=== PATIENT | male | born 1950 | race African-American/Black ===

== ENCOUNTER → 2018-06-14 | Outpatient (CLI) | payer OTHER ==
[~2018-06-14] MED LIST: ASPIRIN325 PO; CALCIUM500 MG PO; CIPROFLOXACIN500 M1 PO; ESTROGEN; NORVASC5 MG PO; PROSCAR 5MG TABL5 MG PO; VITAMIN D2000 UNIT PO
== END ==
LOC: HYPER 06-08 08:33
DX: L59.8 Other specified disorders of the skin and subcutaneous tissue related to radiation (principal); N30.41 Irradiation cystitis with hematuria; E78.5 Hyperlipidemia, unspecified; C61 Malignant neoplasm of prostate; I71.4 Abdominal aortic aneurysm, without rupture; I10 Essential (primary) hypertension; I25.10 Atherosclerotic heart disease of native coronary artery without angina pectoris; J44.9 Chronic obstructive pulmonary disease, unspecified; K80.80 Other cholelithiasis without obstruction; M19.90 Unspecified osteoarthritis, unspecified site; F17.290 Nicotine dependence, other tobacco product, uncomplicated; Z85.89 Personal history of malignant neoplasm of other organs and systems; Y84.2 Radiological procedure and radiotherapy as the cause of abnormal reaction of the patient, or of later complication, without mention of misadventure at the time of the procedure

== ENCOUNTER → 2018-06-16 | Outpatient (CLI) | payer OTHER | LOC: RAD 11:38 | DX: J43.9 Emphysema, unspecified (principal) ==

== ENCOUNTER → 2018-06-20 | Outpatient (CLI) | payer OTHER | LOC: HYPER 09:30 | DX: L59.8 Other specified disorders of the skin and subcutaneous tissue related to radiation (principal); C61 Malignant neoplasm of prostate; E78.5 Hyperlipidemia, unspecified; I71.4 Abdominal aortic aneurysm, without rupture; I25.10 Atherosclerotic heart disease of native coronary artery without angina pectoris; I10 Essential (primary) hypertension; J44.9 Chronic obstructive pulmonary disease, unspecified; M19.90 Unspecified osteoarthritis, unspecified site; F17.290 Nicotine dependence, other tobacco product, uncomplicated; F12.90 Cannabis use, unspecified, uncomplicated; Y84.2 Radiological procedure and radiotherapy as the cause of abnormal reaction of the patient, or of later complication, without mention of misadventure at the time of the procedure ==

== ENCOUNTER → 2018-06-21 | Outpatient (CLI) | payer OTHER | LOC: HYPER 06:42 | DX: L59.8 Other specified disorders of the skin and subcutaneous tissue related to radiation (principal); C61 Malignant neoplasm of prostate; E78.5 Hyperlipidemia, unspecified; I71.4 Abdominal aortic aneurysm, without rupture; I25.10 Atherosclerotic heart disease of native coronary artery without angina pectoris; I10 Essential (primary) hypertension; J44.9 Chronic obstructive pulmonary disease, unspecified; M19.90 Unspecified osteoarthritis, unspecified site; F17.290 Nicotine dependence, other tobacco product, uncomplicated; Y84.2 Radiological procedure and radiotherapy as the cause of abnormal reaction of the patient, or of later complication, without mention of misadventure at the time of the procedure ==

== ENCOUNTER → 2018-06-22 | Outpatient (CLI) | payer OTHER | LOC: HYPER 06:32 | DX: L59.8 Other specified disorders of the skin and subcutaneous tissue related to radiation (principal); I71.4 Abdominal aortic aneurysm, without rupture; C61 Malignant neoplasm of prostate; E78.5 Hyperlipidemia, unspecified; I25.10 Atherosclerotic heart disease of native coronary artery without angina pectoris; I10 Essential (primary) hypertension; J44.9 Chronic obstructive pulmonary disease, unspecified; M19.90 Unspecified osteoarthritis, unspecified site; F17.290 Nicotine dependence, other tobacco product, uncomplicated; F12.90 Cannabis use, unspecified, uncomplicated; Y84.2 Radiological procedure and radiotherapy as the cause of abnormal reaction of the patient, or of later complication, without mention of misadventure at the time of the procedure ==

== ENCOUNTER → 2018-06-23 | Outpatient (CLI) | payer OTHER | LOC: HYPER 07:00 | DX: L59.8 Other specified disorders of the skin and subcutaneous tissue related to radiation (principal); C61 Malignant neoplasm of prostate; E78.5 Hyperlipidemia, unspecified; I71.4 Abdominal aortic aneurysm, without rupture; I25.10 Atherosclerotic heart disease of native coronary artery without angina pectoris; I10 Essential (primary) hypertension; J44.9 Chronic obstructive pulmonary disease, unspecified; M19.90 Unspecified osteoarthritis, unspecified site; F17.290 Nicotine dependence, other tobacco product, uncomplicated; Y84.2 Radiological procedure and radiotherapy as the cause of abnormal reaction of the patient, or of later complication, without mention of misadventure at the time of the procedure ==

== ENCOUNTER → 2018-06-24 | Outpatient (CLI) | payer OTHER | LOC: HYPER 06-23 09:40 | DX: L59.8 Other specified disorders of the skin and subcutaneous tissue related to radiation (principal); C61 Malignant neoplasm of prostate; E78.5 Hyperlipidemia, unspecified; I71.4 Abdominal aortic aneurysm, without rupture; I10 Essential (primary) hypertension; I25.10 Atherosclerotic heart disease of native coronary artery without angina pectoris; J44.9 Chronic obstructive pulmonary disease, unspecified; M87.88 Other osteonecrosis, other site; M19.90 Unspecified osteoarthritis, unspecified site; F17.200 Nicotine dependence, unspecified, uncomplicated; Z85.828 Personal history of other malignant neoplasm of skin; Y84.2 Radiological procedure and radiotherapy as the cause of abnormal reaction of the patient, or of later complication, without mention of misadventure at the time of the procedure ==

== ENCOUNTER → 2018-06-28 | Outpatient (CLI) | payer OTHER | LOC: HYPER 06:48 | DX: L59.8 Other specified disorders of the skin and subcutaneous tissue related to radiation (principal); C61 Malignant neoplasm of prostate; E78.5 Hyperlipidemia, unspecified; I71.4 Abdominal aortic aneurysm, without rupture; I10 Essential (primary) hypertension; I25.10 Atherosclerotic heart disease of native coronary artery without angina pectoris; J44.9 Chronic obstructive pulmonary disease, unspecified; K80.80 Other cholelithiasis without obstruction; M19.90 Unspecified osteoarthritis, unspecified site; F17.290 Nicotine dependence, other tobacco product, uncomplicated; Y84.2 Radiological procedure and radiotherapy as the cause of abnormal reaction of the patient, or of later complication, without mention of misadventure at the time of the procedure ==

== ENCOUNTER → 2018-06-29 | Outpatient (CLI) | payer OTHER | LOC: HYPER 06:42 | DX: L59.8 Other specified disorders of the skin and subcutaneous tissue related to radiation (principal); I71.4 Abdominal aortic aneurysm, without rupture; C61 Malignant neoplasm of prostate; E78.5 Hyperlipidemia, unspecified; I10 Essential (primary) hypertension; I25.10 Atherosclerotic heart disease of native coronary artery without angina pectoris; J44.9 Chronic obstructive pulmonary disease, unspecified; K80.80 Other cholelithiasis without obstruction; M19.90 Unspecified osteoarthritis, unspecified site; F17.290 Nicotine dependence, other tobacco product, uncomplicated; F12.90 Cannabis use, unspecified, uncomplicated; Y84.2 Radiological procedure and radiotherapy as the cause of abnormal reaction of the patient, or of later complication, without mention of misadventure at the time of the procedure ==

== ENCOUNTER → 2018-06-30 | Outpatient (CLI) | payer OTHER | LOC: HYPER 06:52 | DX: L59.8 Other specified disorders of the skin and subcutaneous tissue related to radiation (principal); C61 Malignant neoplasm of prostate; E78.5 Hyperlipidemia, unspecified; I71.4 Abdominal aortic aneurysm, without rupture; I25.10 Atherosclerotic heart disease of native coronary artery without angina pectoris; I10 Essential (primary) hypertension; J44.9 Chronic obstructive pulmonary disease, unspecified; M19.90 Unspecified osteoarthritis, unspecified site; F17.290 Nicotine dependence, other tobacco product, uncomplicated; Y84.2 Radiological procedure and radiotherapy as the cause of abnormal reaction of the patient, or of later complication, without mention of misadventure at the time of the procedure ==

== ENCOUNTER → 2018-07-01 | Outpatient (CLI) | payer OTHER | LOC: HYPER 08:55 | DX: L59.8 Other specified disorders of the skin and subcutaneous tissue related to radiation (principal); C61 Malignant neoplasm of prostate; E78.5 Hyperlipidemia, unspecified; I25.10 Atherosclerotic heart disease of native coronary artery without angina pectoris; I71.4 Abdominal aortic aneurysm, without rupture; I10 Essential (primary) hypertension; J44.9 Chronic obstructive pulmonary disease, unspecified; K80.80 Other cholelithiasis without obstruction; M19.90 Unspecified osteoarthritis, unspecified site; F17.290 Nicotine dependence, other tobacco product, uncomplicated; Y84.2 Radiological procedure and radiotherapy as the cause of abnormal reaction of the patient, or of later complication, without mention of misadventure at the time of the procedure ==

== ENCOUNTER → 2018-07-04 | Outpatient (CLI) | payer OTHER | LOC: HYPER 06-27 06:45 | DX: L59.8 Other specified disorders of the skin and subcutaneous tissue related to radiation (principal); C61 Malignant neoplasm of prostate; E78.5 Hyperlipidemia, unspecified; I71.4 Abdominal aortic aneurysm, without rupture; I10 Essential (primary) hypertension; I25.10 Atherosclerotic heart disease of native coronary artery without angina pectoris; J44.9 Chronic obstructive pulmonary disease, unspecified; K80.80 Other cholelithiasis without obstruction; M19.90 Unspecified osteoarthritis, unspecified site; F17.290 Nicotine dependence, other tobacco product, uncomplicated; Y84.2 Radiological procedure and radiotherapy as the cause of abnormal reaction of the patient, or of later complication, without mention of misadventure at the time of the procedure ==

== ENCOUNTER → 2018-07-05 | Outpatient (CLI) | payer OTHER | LOC: HYPER 07:19 | DX: L59.8 Other specified disorders of the skin and subcutaneous tissue related to radiation (principal); C61 Malignant neoplasm of prostate; E78.5 Hyperlipidemia, unspecified; I71.4 Abdominal aortic aneurysm, without rupture; I10 Essential (primary) hypertension; J44.9 Chronic obstructive pulmonary disease, unspecified; I25.10 Atherosclerotic heart disease of native coronary artery without angina pectoris; K80.80 Other cholelithiasis without obstruction; M19.90 Unspecified osteoarthritis, unspecified site; F17.290 Nicotine dependence, other tobacco product, uncomplicated; F12.90 Cannabis use, unspecified, uncomplicated; Y84.2 Radiological procedure and radiotherapy as the cause of abnormal reaction of the patient, or of later complication, without mention of misadventure at the time of the procedure ==

== ENCOUNTER → 2018-07-06 | Outpatient (CLI) | payer OTHER | LOC: HYPER 06:48 | DX: L59.8 Other specified disorders of the skin and subcutaneous tissue related to radiation (principal); C61 Malignant neoplasm of prostate; I71.4 Abdominal aortic aneurysm, without rupture; I25.10 Atherosclerotic heart disease of native coronary artery without angina pectoris; I10 Essential (primary) hypertension; J44.9 Chronic obstructive pulmonary disease, unspecified; E78.5 Hyperlipidemia, unspecified; M19.90 Unspecified osteoarthritis, unspecified site; F17.290 Nicotine dependence, other tobacco product, uncomplicated; F12.90 Cannabis use, unspecified, uncomplicated; Y84.2 Radiological procedure and radiotherapy as the cause of abnormal reaction of the patient, or of later complication, without mention of misadventure at the time of the procedure ==

== ENCOUNTER → 2018-07-07 | Outpatient (CLI) | payer OTHER | LOC: HYPER 06:59 | DX: L59.8 Other specified disorders of the skin and subcutaneous tissue related to radiation (principal); C61 Malignant neoplasm of prostate; E78.5 Hyperlipidemia, unspecified; I71.4 Abdominal aortic aneurysm, without rupture; I25.10 Atherosclerotic heart disease of native coronary artery without angina pectoris; I10 Essential (primary) hypertension; J44.9 Chronic obstructive pulmonary disease, unspecified; M19.90 Unspecified osteoarthritis, unspecified site; F17.290 Nicotine dependence, other tobacco product, uncomplicated; Y84.2 Radiological procedure and radiotherapy as the cause of abnormal reaction of the patient, or of later complication, without mention of misadventure at the time of the procedure ==

== ENCOUNTER → 2018-07-08 | Outpatient (CLI) | payer OTHER | LOC: HYPER 08:32 | DX: L59.8 Other specified disorders of the skin and subcutaneous tissue related to radiation (principal); C61 Malignant neoplasm of prostate; E78.5 Hyperlipidemia, unspecified; I71.4 Abdominal aortic aneurysm, without rupture; I10 Essential (primary) hypertension; I25.10 Atherosclerotic heart disease of native coronary artery without angina pectoris; J44.9 Chronic obstructive pulmonary disease, unspecified; M19.90 Unspecified osteoarthritis, unspecified site; F17.290 Nicotine dependence, other tobacco product, uncomplicated; Y84.2 Radiological procedure and radiotherapy as the cause of abnormal reaction of the patient, or of later complication, without mention of misadventure at the time of the procedure ==

== ENCOUNTER → 2018-07-11 | Outpatient (CLI) | payer OTHER | LOC: HYPER 07:05 | DX: L59.8 Other specified disorders of the skin and subcutaneous tissue related to radiation (principal); C61 Malignant neoplasm of prostate; E78.5 Hyperlipidemia, unspecified; I71.4 Abdominal aortic aneurysm, without rupture; I25.10 Atherosclerotic heart disease of native coronary artery without angina pectoris; I10 Essential (primary) hypertension; J44.9 Chronic obstructive pulmonary disease, unspecified; M19.90 Unspecified osteoarthritis, unspecified site; F17.290 Nicotine dependence, other tobacco product, uncomplicated; Y84.2 Radiological procedure and radiotherapy as the cause of abnormal reaction of the patient, or of later complication, without mention of misadventure at the time of the procedure ==

== ENCOUNTER → 2018-07-12 | Outpatient (CLI) | payer OTHER | LOC: HYPER 07:33 | DX: L59.8 Other specified disorders of the skin and subcutaneous tissue related to radiation (principal); C61 Malignant neoplasm of prostate; E78.5 Hyperlipidemia, unspecified; I71.4 Abdominal aortic aneurysm, without rupture; I25.10 Atherosclerotic heart disease of native coronary artery without angina pectoris; I10 Essential (primary) hypertension; J44.9 Chronic obstructive pulmonary disease, unspecified; M19.90 Unspecified osteoarthritis, unspecified site; M87.38 Other secondary osteonecrosis, other site; F17.290 Nicotine dependence, other tobacco product, uncomplicated; F12.90 Cannabis use, unspecified, uncomplicated; Y84.2 Radiological procedure and radiotherapy as the cause of abnormal reaction of the patient, or of later complication, without mention of misadventure at the time of the procedure ==

== ENCOUNTER → 2018-07-13 | Outpatient (CLI) | payer OTHER | LOC: HYPER 06:47 | DX: L59.8 Other specified disorders of the skin and subcutaneous tissue related to radiation (principal); C61 Malignant neoplasm of prostate; E78.5 Hyperlipidemia, unspecified; I71.4 Abdominal aortic aneurysm, without rupture; I25.10 Atherosclerotic heart disease of native coronary artery without angina pectoris; I10 Essential (primary) hypertension; J44.9 Chronic obstructive pulmonary disease, unspecified; M87.38 Other secondary osteonecrosis, other site; M19.90 Unspecified osteoarthritis, unspecified site; F17.290 Nicotine dependence, other tobacco product, uncomplicated; Y84.2 Radiological procedure and radiotherapy as the cause of abnormal reaction of the patient, or of later complication, without mention of misadventure at the time of the procedure ==

== ENCOUNTER → 2018-07-14 | Outpatient (CLI) | payer OTHER | LOC: HYPER 07:05 | DX: L59.8 Other specified disorders of the skin and subcutaneous tissue related to radiation (principal); C61 Malignant neoplasm of prostate; E78.5 Hyperlipidemia, unspecified; I71.4 Abdominal aortic aneurysm, without rupture; I25.10 Atherosclerotic heart disease of native coronary artery without angina pectoris; I10 Essential (primary) hypertension; J44.9 Chronic obstructive pulmonary disease, unspecified; M19.90 Unspecified osteoarthritis, unspecified site; M87.38 Other secondary osteonecrosis, other site; F17.290 Nicotine dependence, other tobacco product, uncomplicated; Y84.2 Radiological procedure and radiotherapy as the cause of abnormal reaction of the patient, or of later complication, without mention of misadventure at the time of the procedure ==

== ENCOUNTER → 2018-07-15 | Outpatient (CLI) | payer OTHER | LOC: HYPER 07:57 | DX: L59.8 Other specified disorders of the skin and subcutaneous tissue related to radiation (principal); C61 Malignant neoplasm of prostate; E78.5 Hyperlipidemia, unspecified; I71.4 Abdominal aortic aneurysm, without rupture; I10 Essential (primary) hypertension; I25.10 Atherosclerotic heart disease of native coronary artery without angina pectoris; J44.9 Chronic obstructive pulmonary disease, unspecified; K80.80 Other cholelithiasis without obstruction; M19.90 Unspecified osteoarthritis, unspecified site; M87.38 Other secondary osteonecrosis, other site; F17.290 Nicotine dependence, other tobacco product, uncomplicated; Y84.2 Radiological procedure and radiotherapy as the cause of abnormal reaction of the patient, or of later complication, without mention of misadventure at the time of the procedure ==

== ENCOUNTER → 2018-07-18 | Outpatient (CLI) | payer OTHER | LOC: HYPER 07:10 | DX: L59.8 Other specified disorders of the skin and subcutaneous tissue related to radiation (principal); C61 Malignant neoplasm of prostate; E78.5 Hyperlipidemia, unspecified; I71.4 Abdominal aortic aneurysm, without rupture; I25.10 Atherosclerotic heart disease of native coronary artery without angina pectoris; I10 Essential (primary) hypertension; J44.9 Chronic obstructive pulmonary disease, unspecified; M19.90 Unspecified osteoarthritis, unspecified site; M87.88 Other osteonecrosis, other site; F17.290 Nicotine dependence, other tobacco product, uncomplicated; Y84.2 Radiological procedure and radiotherapy as the cause of abnormal reaction of the patient, or of later complication, without mention of misadventure at the time of the procedure ==

== ENCOUNTER → 2018-07-26 | Outpatient (CLI) | payer OTHER | LOC: HYPER 06:37 | DX: L59.8 Other specified disorders of the skin and subcutaneous tissue related to radiation (principal); C61 Malignant neoplasm of prostate; E78.5 Hyperlipidemia, unspecified; I25.10 Atherosclerotic heart disease of native coronary artery without angina pectoris; I71.4 Abdominal aortic aneurysm, without rupture; I10 Essential (primary) hypertension; J44.9 Chronic obstructive pulmonary disease, unspecified; M19.90 Unspecified osteoarthritis, unspecified site; M87.88 Other osteonecrosis, other site; F17.290 Nicotine dependence, other tobacco product, uncomplicated; Y84.2 Radiological procedure and radiotherapy as the cause of abnormal reaction of the patient, or of later complication, without mention of misadventure at the time of the procedure ==

== ENCOUNTER → 2018-07-27 | Outpatient (CLI) | payer OTHER | LOC: HYPER 06:50 | DX: L59.8 Other specified disorders of the skin and subcutaneous tissue related to radiation (principal); I71.4 Abdominal aortic aneurysm, without rupture; I10 Essential (primary) hypertension; C61 Malignant neoplasm of prostate; I25.10 Atherosclerotic heart disease of native coronary artery without angina pectoris; E78.5 Hyperlipidemia, unspecified; N42.30 Unspecified dysplasia of prostate; M19.90 Unspecified osteoarthritis, unspecified site; J44.9 Chronic obstructive pulmonary disease, unspecified; F17.290 Nicotine dependence, other tobacco product, uncomplicated; Z85.828 Personal history of other malignant neoplasm of skin; Y84.2 Radiological procedure and radiotherapy as the cause of abnormal reaction of the patient, or of later complication, without mention of misadventure at the time of the procedure ==

== ENCOUNTER → 2018-07-28 | Outpatient (CLI) | payer OTHER | LOC: HYPER 07-25 14:24 | DX: L59.8 Other specified disorders of the skin and subcutaneous tissue related to radiation (principal); C61 Malignant neoplasm of prostate; E78.5 Hyperlipidemia, unspecified; I25.10 Atherosclerotic heart disease of native coronary artery without angina pectoris; I10 Essential (primary) hypertension; I71.4 Abdominal aortic aneurysm, without rupture; J44.9 Chronic obstructive pulmonary disease, unspecified; M19.90 Unspecified osteoarthritis, unspecified site; M87.88 Other osteonecrosis, other site; F17.290 Nicotine dependence, other tobacco product, uncomplicated; Y84.2 Radiological procedure and radiotherapy as the cause of abnormal reaction of the patient, or of later complication, without mention of misadventure at the time of the procedure ==

== ENCOUNTER → 2018-07-29 | Outpatient (CLI) | payer OTHER | LOC: HYPER 07-19 06:59 | DX: L59.8 Other specified disorders of the skin and subcutaneous tissue related to radiation (principal); I71.4 Abdominal aortic aneurysm, without rupture; C61 Malignant neoplasm of prostate; E78.5 Hyperlipidemia, unspecified; I25.10 Atherosclerotic heart disease of native coronary artery without angina pectoris; I10 Essential (primary) hypertension; J44.9 Chronic obstructive pulmonary disease, unspecified; M19.90 Unspecified osteoarthritis, unspecified site; M87.88 Other osteonecrosis, other site; F17.290 Nicotine dependence, other tobacco product, uncomplicated; Y84.2 Radiological procedure and radiotherapy as the cause of abnormal reaction of the patient, or of later complication, without mention of misadventure at the time of the procedure ==

== ENCOUNTER → 2018-08-01 | Outpatient (CLI) | payer OTHER | LOC: HYPER 07:01 | DX: L59.8 Other specified disorders of the skin and subcutaneous tissue related to radiation (principal); C61 Malignant neoplasm of prostate; E78.5 Hyperlipidemia, unspecified; I71.4 Abdominal aortic aneurysm, without rupture; I25.10 Atherosclerotic heart disease of native coronary artery without angina pectoris; I10 Essential (primary) hypertension; J44.9 Chronic obstructive pulmonary disease, unspecified; M87.88 Other osteonecrosis, other site; M19.90 Unspecified osteoarthritis, unspecified site; F17.290 Nicotine dependence, other tobacco product, uncomplicated; Y84.2 Radiological procedure and radiotherapy as the cause of abnormal reaction of the patient, or of later complication, without mention of misadventure at the time of the procedure ==

== ENCOUNTER → 2018-08-02 | Outpatient (CLI) | payer OTHER | LOC: HYPER 06:48 | DX: L59.8 Other specified disorders of the skin and subcutaneous tissue related to radiation (principal); C61 Malignant neoplasm of prostate; E78.5 Hyperlipidemia, unspecified; I71.4 Abdominal aortic aneurysm, without rupture; I25.10 Atherosclerotic heart disease of native coronary artery without angina pectoris; I10 Essential (primary) hypertension; J44.9 Chronic obstructive pulmonary disease, unspecified; M87.88 Other osteonecrosis, other site; M19.90 Unspecified osteoarthritis, unspecified site; F17.290 Nicotine dependence, other tobacco product, uncomplicated; Y84.2 Radiological procedure and radiotherapy as the cause of abnormal reaction of the patient, or of later complication, without mention of misadventure at the time of the procedure ==

== ENCOUNTER → 2018-08-03 | Outpatient (CLI) | payer OTHER | LOC: HYPER 07:05 | DX: L59.8 Other specified disorders of the skin and subcutaneous tissue related to radiation (principal); E78.5 Hyperlipidemia, unspecified; C61 Malignant neoplasm of prostate; I71.4 Abdominal aortic aneurysm, without rupture; I25.10 Atherosclerotic heart disease of native coronary artery without angina pectoris; I10 Essential (primary) hypertension; J44.9 Chronic obstructive pulmonary disease, unspecified; M19.90 Unspecified osteoarthritis, unspecified site; M87.88 Other osteonecrosis, other site; F17.290 Nicotine dependence, other tobacco product, uncomplicated; Y84.2 Radiological procedure and radiotherapy as the cause of abnormal reaction of the patient, or of later complication, without mention of misadventure at the time of the procedure ==

== ENCOUNTER → 2018-08-04 | Outpatient (CLI) | payer OTHER | LOC: HYPER 07:07 | DX: L59.8 Other specified disorders of the skin and subcutaneous tissue related to radiation (principal); C61 Malignant neoplasm of prostate; E78.5 Hyperlipidemia, unspecified; I71.4 Abdominal aortic aneurysm, without rupture; I25.10 Atherosclerotic heart disease of native coronary artery without angina pectoris; I10 Essential (primary) hypertension; J44.9 Chronic obstructive pulmonary disease, unspecified; M87.88 Other osteonecrosis, other site; M19.90 Unspecified osteoarthritis, unspecified site; F17.290 Nicotine dependence, other tobacco product, uncomplicated; Y84.2 Radiological procedure and radiotherapy as the cause of abnormal reaction of the patient, or of later complication, without mention of misadventure at the time of the procedure ==

== ENCOUNTER → 2018-08-05 | Outpatient (CLI) | payer OTHER | LOC: HYPER 08:08 | DX: L59.8 Other specified disorders of the skin and subcutaneous tissue related to radiation (principal); C61 Malignant neoplasm of prostate; E78.5 Hyperlipidemia, unspecified; I71.4 Abdominal aortic aneurysm, without rupture; I25.10 Atherosclerotic heart disease of native coronary artery without angina pectoris; I10 Essential (primary) hypertension; J44.9 Chronic obstructive pulmonary disease, unspecified; M19.90 Unspecified osteoarthritis, unspecified site; M87.88 Other osteonecrosis, other site; F17.290 Nicotine dependence, other tobacco product, uncomplicated; Y84.2 Radiological procedure and radiotherapy as the cause of abnormal reaction of the patient, or of later complication, without mention of misadventure at the time of the procedure ==

== ENCOUNTER → 2018-08-08 | Outpatient (CLI) | payer OTHER | LOC: HYPER 07:05 | DX: L59.8 Other specified disorders of the skin and subcutaneous tissue related to radiation (principal); C61 Malignant neoplasm of prostate; I71.4 Abdominal aortic aneurysm, without rupture; E78.5 Hyperlipidemia, unspecified; I25.10 Atherosclerotic heart disease of native coronary artery without angina pectoris; I10 Essential (primary) hypertension; J44.9 Chronic obstructive pulmonary disease, unspecified; M87.88 Other osteonecrosis, other site; M19.90 Unspecified osteoarthritis, unspecified site; F17.290 Nicotine dependence, other tobacco product, uncomplicated ==

== ENCOUNTER → 2018-08-09 | Outpatient (CLI) | payer OTHER | LOC: HYPER 06:51 | DX: L59.8 Other specified disorders of the skin and subcutaneous tissue related to radiation (principal); C61 Malignant neoplasm of prostate; E78.5 Hyperlipidemia, unspecified; I71.4 Abdominal aortic aneurysm, without rupture; I10 Essential (primary) hypertension; I25.10 Atherosclerotic heart disease of native coronary artery without angina pectoris; J44.9 Chronic obstructive pulmonary disease, unspecified; K62.7 Radiation proctitis; M19.90 Unspecified osteoarthritis, unspecified site; M87.88 Other osteonecrosis, other site; F17.290 Nicotine dependence, other tobacco product, uncomplicated; Y84.2 Radiological procedure and radiotherapy as the cause of abnormal reaction of the patient, or of later complication, without mention of misadventure at the time of the procedure ==

== ENCOUNTER → 2018-08-10 | Outpatient (CLI) | payer OTHER | LOC: HYPER 06:58 | DX: L59.8 Other specified disorders of the skin and subcutaneous tissue related to radiation (principal); C61 Malignant neoplasm of prostate; E78.5 Hyperlipidemia, unspecified; I10 Essential (primary) hypertension; I71.4 Abdominal aortic aneurysm, without rupture; I25.10 Atherosclerotic heart disease of native coronary artery without angina pectoris; J44.9 Chronic obstructive pulmonary disease, unspecified; K62.7 Radiation proctitis; M87.38 Other secondary osteonecrosis, other site; M19.90 Unspecified osteoarthritis, unspecified site; F17.290 Nicotine dependence, other tobacco product, uncomplicated ==

== ENCOUNTER → 2018-08-11 | Outpatient (CLI) | payer OTHER | LOC: HYPER 07:09 | DX: L59.8 Other specified disorders of the skin and subcutaneous tissue related to radiation (principal); C61 Malignant neoplasm of prostate; E78.5 Hyperlipidemia, unspecified; I71.4 Abdominal aortic aneurysm, without rupture; I10 Essential (primary) hypertension; I25.10 Atherosclerotic heart disease of native coronary artery without angina pectoris; J44.9 Chronic obstructive pulmonary disease, unspecified; M87.38 Other secondary osteonecrosis, other site; M19.90 Unspecified osteoarthritis, unspecified site; F17.290 Nicotine dependence, other tobacco product, uncomplicated; F12.90 Cannabis use, unspecified, uncomplicated; Y84.2 Radiological procedure and radiotherapy as the cause of abnormal reaction of the patient, or of later complication, without mention of misadventure at the time of the procedure ==

== ENCOUNTER → 2018-08-12 | Outpatient (CLI) | payer OTHER | LOC: HYPER 07:39 | DX: L59.8 Other specified disorders of the skin and subcutaneous tissue related to radiation (principal); I71.4 Abdominal aortic aneurysm, without rupture; C61 Malignant neoplasm of prostate; I25.10 Atherosclerotic heart disease of native coronary artery without angina pectoris; E78.5 Hyperlipidemia, unspecified; I10 Essential (primary) hypertension; N42.30 Unspecified dysplasia of prostate; K62.7 Radiation proctitis; M19.90 Unspecified osteoarthritis, unspecified site; J44.9 Chronic obstructive pulmonary disease, unspecified; F17.200 Nicotine dependence, unspecified, uncomplicated; F12.90 Cannabis use, unspecified, uncomplicated; Y84.2 Radiological procedure and radiotherapy as the cause of abnormal reaction of the patient, or of later complication, without mention of misadventure at the time of the procedure ==

== ENCOUNTER → 2018-08-15 | Outpatient (CLI) | payer OTHER | LOC: HYPER 06:53 | DX: L59.8 Other specified disorders of the skin and subcutaneous tissue related to radiation (principal); C61 Malignant neoplasm of prostate; E78.5 Hyperlipidemia, unspecified; I71.4 Abdominal aortic aneurysm, without rupture; I25.10 Atherosclerotic heart disease of native coronary artery without angina pectoris; I10 Essential (primary) hypertension; J44.9 Chronic obstructive pulmonary disease, unspecified; K62.7 Radiation proctitis; M19.90 Unspecified osteoarthritis, unspecified site; M87.38 Other secondary osteonecrosis, other site; F17.290 Nicotine dependence, other tobacco product, uncomplicated; Y84.2 Radiological procedure and radiotherapy as the cause of abnormal reaction of the patient, or of later complication, without mention of misadventure at the time of the procedure ==

== ENCOUNTER → 2018-08-16 | Outpatient (CLI) | payer OTHER | LOC: HYPER 07:03 | DX: L59.8 Other specified disorders of the skin and subcutaneous tissue related to radiation (principal); C61 Malignant neoplasm of prostate; E78.5 Hyperlipidemia, unspecified; I71.4 Abdominal aortic aneurysm, without rupture; I25.10 Atherosclerotic heart disease of native coronary artery without angina pectoris; I10 Essential (primary) hypertension; J44.9 Chronic obstructive pulmonary disease, unspecified; K62.7 Radiation proctitis; M19.90 Unspecified osteoarthritis, unspecified site; M87.38 Other secondary osteonecrosis, other site; F17.290 Nicotine dependence, other tobacco product, uncomplicated; Y84.2 Radiological procedure and radiotherapy as the cause of abnormal reaction of the patient, or of later complication, without mention of misadventure at the time of the procedure ==

== ENCOUNTER → 2018-08-17 | Outpatient (CLI) | payer OTHER | LOC: HYPER 06:51 | DX: L59.8 Other specified disorders of the skin and subcutaneous tissue related to radiation (principal); I10 Essential (primary) hypertension; E78.5 Hyperlipidemia, unspecified; I71.4 Abdominal aortic aneurysm, without rupture; N42.30 Unspecified dysplasia of prostate; K62.7 Radiation proctitis; I25.10 Atherosclerotic heart disease of native coronary artery without angina pectoris; C61 Malignant neoplasm of prostate; M19.90 Unspecified osteoarthritis, unspecified site; J44.9 Chronic obstructive pulmonary disease, unspecified; F17.290 Nicotine dependence, other tobacco product, uncomplicated; Y84.2 Radiological procedure and radiotherapy as the cause of abnormal reaction of the patient, or of later complication, without mention of misadventure at the time of the procedure ==

== ENCOUNTER → 2018-08-18 | Outpatient (CLI) | payer OTHER | LOC: HYPER 07:00 | DX: L59.8 Other specified disorders of the skin and subcutaneous tissue related to radiation (principal); C61 Malignant neoplasm of prostate; E78.5 Hyperlipidemia, unspecified; I25.10 Atherosclerotic heart disease of native coronary artery without angina pectoris; I10 Essential (primary) hypertension; I71.4 Abdominal aortic aneurysm, without rupture; J44.9 Chronic obstructive pulmonary disease, unspecified; K62.7 Radiation proctitis; M19.90 Unspecified osteoarthritis, unspecified site; M87.38 Other secondary osteonecrosis, other site; F17.290 Nicotine dependence, other tobacco product, uncomplicated; Z85.89 Personal history of malignant neoplasm of other organs and systems ==

== ENCOUNTER → 2018-08-19 | Outpatient (CLI) | payer OTHER | LOC: HYPER 07:46 | DX: L59.8 Other specified disorders of the skin and subcutaneous tissue related to radiation (principal); C61 Malignant neoplasm of prostate; E78.5 Hyperlipidemia, unspecified; I71.4 Abdominal aortic aneurysm, without rupture; I25.10 Atherosclerotic heart disease of native coronary artery without angina pectoris; I10 Essential (primary) hypertension; J44.9 Chronic obstructive pulmonary disease, unspecified; M87.38 Other secondary osteonecrosis, other site; M19.90 Unspecified osteoarthritis, unspecified site; F17.290 Nicotine dependence, other tobacco product, uncomplicated; Z85.89 Personal history of malignant neoplasm of other organs and systems; Y84.2 Radiological procedure and radiotherapy as the cause of abnormal reaction of the patient, or of later complication, without mention of misadventure at the time of the procedure ==

== ENCOUNTER → 2018-08-24 | Outpatient (CLI) | payer OTHER | LOC: HYPER 06:58 | DX: L59.8 Other specified disorders of the skin and subcutaneous tissue related to radiation (principal); C61 Malignant neoplasm of prostate; E78.5 Hyperlipidemia, unspecified; I25.10 Atherosclerotic heart disease of native coronary artery without angina pectoris; I10 Essential (primary) hypertension; I71.4 Abdominal aortic aneurysm, without rupture; J44.9 Chronic obstructive pulmonary disease, unspecified; K62.7 Radiation proctitis; M19.90 Unspecified osteoarthritis, unspecified site; M87.38 Other secondary osteonecrosis, other site; F17.290 Nicotine dependence, other tobacco product, uncomplicated; Y84.2 Radiological procedure and radiotherapy as the cause of abnormal reaction of the patient, or of later complication, without mention of misadventure at the time of the procedure ==

== ENCOUNTER → 2018-12-01 | Outpatient (CLI) | payer OTHER | LOC: HYPER 07:06 | DX: L59.8 Other specified disorders of the skin and subcutaneous tissue related to radiation (principal); C61 Malignant neoplasm of prostate; I10 Essential (primary) hypertension; N42.30 Unspecified dysplasia of prostate; I71.4 Abdominal aortic aneurysm, without rupture; I25.10 Atherosclerotic heart disease of native coronary artery without angina pectoris; E78.5 Hyperlipidemia, unspecified; K80.80 Other cholelithiasis without obstruction; K62.7 Radiation proctitis; M19.90 Unspecified osteoarthritis, unspecified site; J44.9 Chronic obstructive pulmonary disease, unspecified; F17.210 Nicotine dependence, cigarettes, uncomplicated; Z85.828 Personal history of other malignant neoplasm of skin; Y84.2 Radiological procedure and radiotherapy as the cause of abnormal reaction of the patient, or of later complication, without mention of misadventure at the time of the procedure ==

== ENCOUNTER → 2018-12-05 | Outpatient (CLI) | payer OTHER | LOC: HYPER 06:55 | DX: L59.8 Other specified disorders of the skin and subcutaneous tissue related to radiation (principal); I71.4 Abdominal aortic aneurysm, without rupture; C61 Malignant neoplasm of prostate; N30.41 Irradiation cystitis with hematuria; N42.30 Unspecified dysplasia of prostate; E78.5 Hyperlipidemia, unspecified; I25.10 Atherosclerotic heart disease of native coronary artery without angina pectoris; I10 Essential (primary) hypertension; J44.9 Chronic obstructive pulmonary disease, unspecified; M87.38 Other secondary osteonecrosis, other site; M19.90 Unspecified osteoarthritis, unspecified site; F17.290 Nicotine dependence, other tobacco product, uncomplicated; Y84.2 Radiological procedure and radiotherapy as the cause of abnormal reaction of the patient, or of later complication, without mention of misadventure at the time of the procedure ==

== ENCOUNTER → 2018-12-07 | Outpatient (CLI) | payer OTHER | LOC: HYPER 06:45 | DX: L59.8 Other specified disorders of the skin and subcutaneous tissue related to radiation (principal); C61 Malignant neoplasm of prostate; E78.5 Hyperlipidemia, unspecified; I71.4 Abdominal aortic aneurysm, without rupture; I25.10 Atherosclerotic heart disease of native coronary artery without angina pectoris; I10 Essential (primary) hypertension; J44.9 Chronic obstructive pulmonary disease, unspecified; M19.90 Unspecified osteoarthritis, unspecified site; M87.38 Other secondary osteonecrosis, other site; N42.30 Unspecified dysplasia of prostate; N30.41 Irradiation cystitis with hematuria; F17.290 Nicotine dependence, other tobacco product, uncomplicated; F12.90 Cannabis use, unspecified, uncomplicated; Y84.2 Radiological procedure and radiotherapy as the cause of abnormal reaction of the patient, or of later complication, without mention of misadventure at the time of the procedure ==

== ENCOUNTER → 2018-12-08 | Outpatient (CLI) | payer OTHER | LOC: HYPER 06:35 | DX: L59.8 Other specified disorders of the skin and subcutaneous tissue related to radiation (principal); I71.4 Abdominal aortic aneurysm, without rupture; N42.30 Unspecified dysplasia of prostate; E78.5 Hyperlipidemia, unspecified; I10 Essential (primary) hypertension; C61 Malignant neoplasm of prostate; N30.41 Irradiation cystitis with hematuria; I25.10 Atherosclerotic heart disease of native coronary artery without angina pectoris; M19.90 Unspecified osteoarthritis, unspecified site; J44.9 Chronic obstructive pulmonary disease, unspecified; F17.200 Nicotine dependence, unspecified, uncomplicated; Z85.828 Personal history of other malignant neoplasm of skin; Y84.2 Radiological procedure and radiotherapy as the cause of abnormal reaction of the patient, or of later complication, without mention of misadventure at the time of the procedure ==

== ENCOUNTER → 2018-12-09 | Outpatient (CLI) | payer OTHER | LOC: HYPER 07:42 | DX: L59.8 Other specified disorders of the skin and subcutaneous tissue related to radiation (principal); I10 Essential (primary) hypertension; E78.5 Hyperlipidemia, unspecified; I71.4 Abdominal aortic aneurysm, without rupture; N42.30 Unspecified dysplasia of prostate; C61 Malignant neoplasm of prostate; N30.41 Irradiation cystitis with hematuria; I25.10 Atherosclerotic heart disease of native coronary artery without angina pectoris; M19.90 Unspecified osteoarthritis, unspecified site; J44.9 Chronic obstructive pulmonary disease, unspecified; F17.210 Nicotine dependence, cigarettes, uncomplicated; Z85.828 Personal history of other malignant neoplasm of skin; Y84.2 Radiological procedure and radiotherapy as the cause of abnormal reaction of the patient, or of later complication, without mention of misadventure at the time of the procedure ==

== ENCOUNTER → 2018-12-12 | Outpatient (CLI) | payer OTHER | LOC: HYPER 06:47 | DX: L59.8 Other specified disorders of the skin and subcutaneous tissue related to radiation (principal); I71.4 Abdominal aortic aneurysm, without rupture; N42.30 Unspecified dysplasia of prostate; I10 Essential (primary) hypertension; C61 Malignant neoplasm of prostate; N30.41 Irradiation cystitis with hematuria; I25.10 Atherosclerotic heart disease of native coronary artery without angina pectoris; M19.90 Unspecified osteoarthritis, unspecified site; E78.5 Hyperlipidemia, unspecified; J44.9 Chronic obstructive pulmonary disease, unspecified; F17.290 Nicotine dependence, other tobacco product, uncomplicated; Z85.828 Personal history of other malignant neoplasm of skin; Y84.2 Radiological procedure and radiotherapy as the cause of abnormal reaction of the patient, or of later complication, without mention of misadventure at the time of the procedure ==

== ENCOUNTER → 2018-12-13 | Outpatient (CLI) | payer OTHER | LOC: HYPER 06:55 | DX: L59.8 Other specified disorders of the skin and subcutaneous tissue related to radiation (principal); I71.4 Abdominal aortic aneurysm, without rupture; N42.30 Unspecified dysplasia of prostate; C61 Malignant neoplasm of prostate; I10 Essential (primary) hypertension; I25.10 Atherosclerotic heart disease of native coronary artery without angina pectoris; E78.5 Hyperlipidemia, unspecified; K80.80 Other cholelithiasis without obstruction; K62.7 Radiation proctitis; N30.40 Irradiation cystitis without hematuria; M19.90 Unspecified osteoarthritis, unspecified site; J44.9 Chronic obstructive pulmonary disease, unspecified; F17.290 Nicotine dependence, other tobacco product, uncomplicated; Z85.828 Personal history of other malignant neoplasm of skin; Y84.2 Radiological procedure and radiotherapy as the cause of abnormal reaction of the patient, or of later complication, without mention of misadventure at the time of the procedure ==

== ENCOUNTER → 2018-12-14 | Outpatient (CLI) | payer OTHER | LOC: HYPER 06:57 | DX: L59.8 Other specified disorders of the skin and subcutaneous tissue related to radiation (principal); C61 Malignant neoplasm of prostate; E78.5 Hyperlipidemia, unspecified; I71.4 Abdominal aortic aneurysm, without rupture; I25.10 Atherosclerotic heart disease of native coronary artery without angina pectoris; I10 Essential (primary) hypertension; N30.41 Irradiation cystitis with hematuria; J44.9 Chronic obstructive pulmonary disease, unspecified; M19.90 Unspecified osteoarthritis, unspecified site; M87.38 Other secondary osteonecrosis, other site; F17.290 Nicotine dependence, other tobacco product, uncomplicated; Y84.2 Radiological procedure and radiotherapy as the cause of abnormal reaction of the patient, or of later complication, without mention of misadventure at the time of the procedure ==

== ENCOUNTER → 2018-12-15 | Outpatient (CLI) | payer OTHER | LOC: HYPER 06:46 | DX: L59.8 Other specified disorders of the skin and subcutaneous tissue related to radiation (principal); N30.41 Irradiation cystitis with hematuria; C61 Malignant neoplasm of prostate; E78.5 Hyperlipidemia, unspecified; I71.4 Abdominal aortic aneurysm, without rupture; I25.10 Atherosclerotic heart disease of native coronary artery without angina pectoris; I10 Essential (primary) hypertension; J44.9 Chronic obstructive pulmonary disease, unspecified; M19.90 Unspecified osteoarthritis, unspecified site; M87.38 Other secondary osteonecrosis, other site; F17.290 Nicotine dependence, other tobacco product, uncomplicated; Y84.2 Radiological procedure and radiotherapy as the cause of abnormal reaction of the patient, or of later complication, without mention of misadventure at the time of the procedure ==

== ENCOUNTER → 2018-12-16 | Outpatient (CLI) | payer OTHER | LOC: HYPER 06:45 | DX: L59.8 Other specified disorders of the skin and subcutaneous tissue related to radiation (principal); N30.41 Irradiation cystitis with hematuria; C61 Malignant neoplasm of prostate; E78.5 Hyperlipidemia, unspecified; I25.10 Atherosclerotic heart disease of native coronary artery without angina pectoris; I71.4 Abdominal aortic aneurysm, without rupture; I10 Essential (primary) hypertension; J44.9 Chronic obstructive pulmonary disease, unspecified; M19.90 Unspecified osteoarthritis, unspecified site; M87.38 Other secondary osteonecrosis, other site; F17.290 Nicotine dependence, other tobacco product, uncomplicated; Y84.2 Radiological procedure and radiotherapy as the cause of abnormal reaction of the patient, or of later complication, without mention of misadventure at the time of the procedure ==

== ENCOUNTER → 2018-12-19 | Outpatient (CLI) | payer OTHER | LOC: HYPER 06:46 | DX: L59.8 Other specified disorders of the skin and subcutaneous tissue related to radiation (principal); N30.41 Irradiation cystitis with hematuria; C61 Malignant neoplasm of prostate; E78.5 Hyperlipidemia, unspecified; I71.4 Abdominal aortic aneurysm, without rupture; I25.10 Atherosclerotic heart disease of native coronary artery without angina pectoris; I10 Essential (primary) hypertension; J44.9 Chronic obstructive pulmonary disease, unspecified; M87.38 Other secondary osteonecrosis, other site; M19.90 Unspecified osteoarthritis, unspecified site; F17.290 Nicotine dependence, other tobacco product, uncomplicated; Y84.2 Radiological procedure and radiotherapy as the cause of abnormal reaction of the patient, or of later complication, without mention of misadventure at the time of the procedure ==

== ENCOUNTER → 2018-12-20 | Outpatient (CLI) | payer OTHER | LOC: HYPER 06:54 | DX: L59.8 Other specified disorders of the skin and subcutaneous tissue related to radiation (principal); N30.41 Irradiation cystitis with hematuria; C61 Malignant neoplasm of prostate; E78.5 Hyperlipidemia, unspecified; I71.4 Abdominal aortic aneurysm, without rupture; I25.10 Atherosclerotic heart disease of native coronary artery without angina pectoris; I10 Essential (primary) hypertension; J44.9 Chronic obstructive pulmonary disease, unspecified; M19.90 Unspecified osteoarthritis, unspecified site; M87.38 Other secondary osteonecrosis, other site; F17.290 Nicotine dependence, other tobacco product, uncomplicated; F12.90 Cannabis use, unspecified, uncomplicated; Y84.2 Radiological procedure and radiotherapy as the cause of abnormal reaction of the patient, or of later complication, without mention of misadventure at the time of the procedure ==

== ENCOUNTER → 2018-12-22 | Outpatient (CLI) | payer OTHER | LOC: HYPER 07:03 | DX: L59.8 Other specified disorders of the skin and subcutaneous tissue related to radiation (principal); I71.4 Abdominal aortic aneurysm, without rupture; N42.30 Unspecified dysplasia of prostate; C61 Malignant neoplasm of prostate; N30.41 Irradiation cystitis with hematuria; I10 Essential (primary) hypertension; I25.10 Atherosclerotic heart disease of native coronary artery without angina pectoris; M19.90 Unspecified osteoarthritis, unspecified site; E78.5 Hyperlipidemia, unspecified; J44.9 Chronic obstructive pulmonary disease, unspecified; F17.200 Nicotine dependence, unspecified, uncomplicated; Z85.828 Personal history of other malignant neoplasm of skin; Y84.2 Radiological procedure and radiotherapy as the cause of abnormal reaction of the patient, or of later complication, without mention of misadventure at the time of the procedure ==

== ENCOUNTER → 2018-12-23 | Outpatient (CLI) | payer OTHER | LOC: HYPER 08:39 | DX: L59.8 Other specified disorders of the skin and subcutaneous tissue related to radiation (principal); I71.4 Abdominal aortic aneurysm, without rupture; C61 Malignant neoplasm of prostate; I10 Essential (primary) hypertension; N42.30 Unspecified dysplasia of prostate; N30.41 Irradiation cystitis with hematuria; I25.10 Atherosclerotic heart disease of native coronary artery without angina pectoris; M19.90 Unspecified osteoarthritis, unspecified site; E78.5 Hyperlipidemia, unspecified; J44.9 Chronic obstructive pulmonary disease, unspecified; F17.210 Nicotine dependence, cigarettes, uncomplicated; Y84.2 Radiological procedure and radiotherapy as the cause of abnormal reaction of the patient, or of later complication, without mention of misadventure at the time of the procedure ==

== ENCOUNTER → 2018-12-26 | Outpatient (CLI) | payer OTHER | LOC: HYPER 06:58 | DX: L59.8 Other specified disorders of the skin and subcutaneous tissue related to radiation (principal); I71.4 Abdominal aortic aneurysm, without rupture; N42.30 Unspecified dysplasia of prostate; C61 Malignant neoplasm of prostate; N30.41 Irradiation cystitis with hematuria; M19.90 Unspecified osteoarthritis, unspecified site; E78.5 Hyperlipidemia, unspecified; I10 Essential (primary) hypertension; J44.9 Chronic obstructive pulmonary disease, unspecified; F17.200 Nicotine dependence, unspecified, uncomplicated; Y84.2 Radiological procedure and radiotherapy as the cause of abnormal reaction of the patient, or of later complication, without mention of misadventure at the time of the procedure ==

== ENCOUNTER → 2018-12-27 | Outpatient (CLI) | payer OTHER | LOC: HYPER 12-21 06:34 | DX: L59.8 Other specified disorders of the skin and subcutaneous tissue related to radiation (principal); C61 Malignant neoplasm of prostate; I71.4 Abdominal aortic aneurysm, without rupture; I10 Essential (primary) hypertension; E78.5 Hyperlipidemia, unspecified; J44.9 Chronic obstructive pulmonary disease, unspecified; N42.30 Unspecified dysplasia of prostate; K80.80 Other cholelithiasis without obstruction; K62.7 Radiation proctitis; N30.01 Acute cystitis with hematuria; I25.10 Atherosclerotic heart disease of native coronary artery without angina pectoris; M19.90 Unspecified osteoarthritis, unspecified site; M87.38 Other secondary osteonecrosis, other site; Y84.2 Radiological procedure and radiotherapy as the cause of abnormal reaction of the patient, or of later complication, without mention of misadventure at the time of the procedure ==

== ENCOUNTER → 2018-12-28 | Outpatient (CLI) | payer OTHER | LOC: HYPER 06:32 | DX: L59.8 Other specified disorders of the skin and subcutaneous tissue related to radiation (principal); N30.41 Irradiation cystitis with hematuria; C61 Malignant neoplasm of prostate; E78.5 Hyperlipidemia, unspecified; I71.4 Abdominal aortic aneurysm, without rupture; I25.10 Atherosclerotic heart disease of native coronary artery without angina pectoris; I10 Essential (primary) hypertension; J44.9 Chronic obstructive pulmonary disease, unspecified; M19.90 Unspecified osteoarthritis, unspecified site; M87.38 Other secondary osteonecrosis, other site; F17.290 Nicotine dependence, other tobacco product, uncomplicated; F12.90 Cannabis use, unspecified, uncomplicated; Y84.2 Radiological procedure and radiotherapy as the cause of abnormal reaction of the patient, or of later complication, without mention of misadventure at the time of the procedure ==

== ENCOUNTER → 2018-12-29 | Outpatient (CLI) | payer OTHER | LOC: HYPER 06:57 | DX: L59.8 Other specified disorders of the skin and subcutaneous tissue related to radiation (principal); N30.41 Irradiation cystitis with hematuria; C61 Malignant neoplasm of prostate; E78.5 Hyperlipidemia, unspecified; I71.4 Abdominal aortic aneurysm, without rupture; I25.10 Atherosclerotic heart disease of native coronary artery without angina pectoris; I10 Essential (primary) hypertension; J44.9 Chronic obstructive pulmonary disease, unspecified; M19.90 Unspecified osteoarthritis, unspecified site; M87.38 Other secondary osteonecrosis, other site; F17.290 Nicotine dependence, other tobacco product, uncomplicated; Y84.2 Radiological procedure and radiotherapy as the cause of abnormal reaction of the patient, or of later complication, without mention of misadventure at the time of the procedure ==

== ENCOUNTER → 2018-12-30 | Outpatient (CLI) | payer OTHER | LOC: HYPER 07:52 | DX: L59.8 Other specified disorders of the skin and subcutaneous tissue related to radiation (principal); N30.41 Irradiation cystitis with hematuria; C61 Malignant neoplasm of prostate; E78.5 Hyperlipidemia, unspecified; I71.4 Abdominal aortic aneurysm, without rupture; I25.10 Atherosclerotic heart disease of native coronary artery without angina pectoris; I10 Essential (primary) hypertension; J44.9 Chronic obstructive pulmonary disease, unspecified; M19.90 Unspecified osteoarthritis, unspecified site; M87.38 Other secondary osteonecrosis, other site; F17.290 Nicotine dependence, other tobacco product, uncomplicated; F12.90 Cannabis use, unspecified, uncomplicated; Y84.2 Radiological procedure and radiotherapy as the cause of abnormal reaction of the patient, or of later complication, without mention of misadventure at the time of the procedure ==

== ENCOUNTER → 2019-01-02 | Outpatient (CLI) | payer OTHER | LOC: HYPER 06:39 | DX: L59.8 Other specified disorders of the skin and subcutaneous tissue related to radiation (principal); N30.41 Irradiation cystitis with hematuria; C61 Malignant neoplasm of prostate; E78.5 Hyperlipidemia, unspecified; I71.4 Abdominal aortic aneurysm, without rupture; I25.10 Atherosclerotic heart disease of native coronary artery without angina pectoris; I10 Essential (primary) hypertension; J44.9 Chronic obstructive pulmonary disease, unspecified; M87.38 Other secondary osteonecrosis, other site; M19.90 Unspecified osteoarthritis, unspecified site; F17.290 Nicotine dependence, other tobacco product, uncomplicated; Z85.46 Personal history of malignant neoplasm of prostate; Y84.2 Radiological procedure and radiotherapy as the cause of abnormal reaction of the patient, or of later complication, without mention of misadventure at the time of the procedure ==

== ENCOUNTER → 2019-01-03 | Outpatient (CLI) | payer OTHER | LOC: HYPER 06:37 | DX: L59.8 Other specified disorders of the skin and subcutaneous tissue related to radiation (principal); N30.41 Irradiation cystitis with hematuria; C61 Malignant neoplasm of prostate; E78.5 Hyperlipidemia, unspecified; I71.4 Abdominal aortic aneurysm, without rupture; I25.10 Atherosclerotic heart disease of native coronary artery without angina pectoris; I10 Essential (primary) hypertension; J44.9 Chronic obstructive pulmonary disease, unspecified; M19.90 Unspecified osteoarthritis, unspecified site; M87.38 Other secondary osteonecrosis, other site; F12.20 Cannabis dependence, uncomplicated; F17.290 Nicotine dependence, other tobacco product, uncomplicated; Y84.2 Radiological procedure and radiotherapy as the cause of abnormal reaction of the patient, or of later complication, without mention of misadventure at the time of the procedure ==

== ENCOUNTER → 2019-01-04 | Outpatient (CLI) | payer OTHER | LOC: HYPER 06:50 | DX: L59.8 Other specified disorders of the skin and subcutaneous tissue related to radiation (principal); N30.41 Irradiation cystitis with hematuria; E78.5 Hyperlipidemia, unspecified; C61 Malignant neoplasm of prostate; I71.4 Abdominal aortic aneurysm, without rupture; I25.10 Atherosclerotic heart disease of native coronary artery without angina pectoris; I10 Essential (primary) hypertension; J44.9 Chronic obstructive pulmonary disease, unspecified; M19.90 Unspecified osteoarthritis, unspecified site; M87.38 Other secondary osteonecrosis, other site; F17.290 Nicotine dependence, other tobacco product, uncomplicated; Y84.2 Radiological procedure and radiotherapy as the cause of abnormal reaction of the patient, or of later complication, without mention of misadventure at the time of the procedure ==

== ENCOUNTER → 2019-01-05 | Outpatient (CLI) | payer OTHER | LOC: HYPER 06:42 | DX: L59.8 Other specified disorders of the skin and subcutaneous tissue related to radiation (principal); I71.4 Abdominal aortic aneurysm, without rupture; C61 Malignant neoplasm of prostate; I25.10 Atherosclerotic heart disease of native coronary artery without angina pectoris; M19.90 Unspecified osteoarthritis, unspecified site; E78.5 Hyperlipidemia, unspecified; I10 Essential (primary) hypertension; E55.9 Vitamin D deficiency, unspecified; N30.41 Irradiation cystitis with hematuria; N42.30 Unspecified dysplasia of prostate; J44.9 Chronic obstructive pulmonary disease, unspecified; F17.200 Nicotine dependence, unspecified, uncomplicated; Z85.828 Personal history of other malignant neoplasm of skin; Y84.2 Radiological procedure and radiotherapy as the cause of abnormal reaction of the patient, or of later complication, without mention of misadventure at the time of the procedure ==

== ENCOUNTER → 2019-01-06 | Outpatient (CLI) | payer OTHER | LOC: HYPER 08:58 | DX: L59.8 Other specified disorders of the skin and subcutaneous tissue related to radiation (principal); I71.4 Abdominal aortic aneurysm, without rupture; N42.30 Unspecified dysplasia of prostate; C61 Malignant neoplasm of prostate; N30.41 Irradiation cystitis with hematuria; I25.10 Atherosclerotic heart disease of native coronary artery without angina pectoris; E78.5 Hyperlipidemia, unspecified; E55.9 Vitamin D deficiency, unspecified; M19.90 Unspecified osteoarthritis, unspecified site; J44.9 Chronic obstructive pulmonary disease, unspecified; F17.210 Nicotine dependence, cigarettes, uncomplicated; Y84.2 Radiological procedure and radiotherapy as the cause of abnormal reaction of the patient, or of later complication, without mention of misadventure at the time of the procedure ==

== ENCOUNTER → 2019-01-09 | Outpatient (CLI) | payer OTHER | LOC: HYPER 06:45 | DX: L59.8 Other specified disorders of the skin and subcutaneous tissue related to radiation (principal); I71.4 Abdominal aortic aneurysm, without rupture; N42.30 Unspecified dysplasia of prostate; C61 Malignant neoplasm of prostate; N30.41 Irradiation cystitis with hematuria; I25.10 Atherosclerotic heart disease of native coronary artery without angina pectoris; M19.90 Unspecified osteoarthritis, unspecified site; E55.9 Vitamin D deficiency, unspecified; J44.9 Chronic obstructive pulmonary disease, unspecified; F17.210 Nicotine dependence, cigarettes, uncomplicated; Y84.2 Radiological procedure and radiotherapy as the cause of abnormal reaction of the patient, or of later complication, without mention of misadventure at the time of the procedure ==

== ENCOUNTER → 2019-01-10 | Outpatient (CLI) | payer OTHER | LOC: HYPER 06:45 | DX: L59.8 Other specified disorders of the skin and subcutaneous tissue related to radiation (principal); I71.4 Abdominal aortic aneurysm, without rupture; N42.30 Unspecified dysplasia of prostate; C61 Malignant neoplasm of prostate; N30.41 Irradiation cystitis with hematuria; I25.10 Atherosclerotic heart disease of native coronary artery without angina pectoris; E78.5 Hyperlipidemia, unspecified; I10 Essential (primary) hypertension; E55.9 Vitamin D deficiency, unspecified; J44.9 Chronic obstructive pulmonary disease, unspecified; F17.210 Nicotine dependence, cigarettes, uncomplicated; F12.90 Cannabis use, unspecified, uncomplicated; Y84.2 Radiological procedure and radiotherapy as the cause of abnormal reaction of the patient, or of later complication, without mention of misadventure at the time of the procedure ==

== ENCOUNTER → 2019-01-11 | Outpatient (CLI) | payer OTHER | LOC: HYPER 06:49 | DX: L59.8 Other specified disorders of the skin and subcutaneous tissue related to radiation (principal); I71.4 Abdominal aortic aneurysm, without rupture; N42.30 Unspecified dysplasia of prostate; I10 Essential (primary) hypertension; C61 Malignant neoplasm of prostate; N30.41 Irradiation cystitis with hematuria; I25.10 Atherosclerotic heart disease of native coronary artery without angina pectoris; M19.90 Unspecified osteoarthritis, unspecified site; E78.5 Hyperlipidemia, unspecified; E55.9 Vitamin D deficiency, unspecified; J44.9 Chronic obstructive pulmonary disease, unspecified; F17.210 Nicotine dependence, cigarettes, uncomplicated; F12.90 Cannabis use, unspecified, uncomplicated; Z85.3 Personal history of malignant neoplasm of breast; Z85.828 Personal history of other malignant neoplasm of skin; Y84.2 Radiological procedure and radiotherapy as the cause of abnormal reaction of the patient, or of later complication, without mention of misadventure at the time of the procedure ==

== ENCOUNTER → 2019-01-12 | Outpatient (CLI) | payer OTHER | LOC: HYPER 06:43 | DX: L59.8 Other specified disorders of the skin and subcutaneous tissue related to radiation (principal); I71.4 Abdominal aortic aneurysm, without rupture; N42.30 Unspecified dysplasia of prostate; C61 Malignant neoplasm of prostate; N30.41 Irradiation cystitis with hematuria; I25.10 Atherosclerotic heart disease of native coronary artery without angina pectoris; E55.9 Vitamin D deficiency, unspecified; E78.5 Hyperlipidemia, unspecified; J44.9 Chronic obstructive pulmonary disease, unspecified; F17.210 Nicotine dependence, cigarettes, uncomplicated; Z85.828 Personal history of other malignant neoplasm of skin; Y84.2 Radiological procedure and radiotherapy as the cause of abnormal reaction of the patient, or of later complication, without mention of misadventure at the time of the procedure ==

== ENCOUNTER → 2019-01-13 | Outpatient (CLI) | payer OTHER | LOC: HYPER 07:46 | DX: L59.8 Other specified disorders of the skin and subcutaneous tissue related to radiation (principal); I71.4 Abdominal aortic aneurysm, without rupture; N42.30 Unspecified dysplasia of prostate; I10 Essential (primary) hypertension; C61 Malignant neoplasm of prostate; N30.41 Irradiation cystitis with hematuria; I25.10 Atherosclerotic heart disease of native coronary artery without angina pectoris; M19.90 Unspecified osteoarthritis, unspecified site; E78.5 Hyperlipidemia, unspecified; E55.9 Vitamin D deficiency, unspecified; J44.9 Chronic obstructive pulmonary disease, unspecified; F17.210 Nicotine dependence, cigarettes, uncomplicated; Y84.2 Radiological procedure and radiotherapy as the cause of abnormal reaction of the patient, or of later complication, without mention of misadventure at the time of the procedure ==

== ENCOUNTER → 2019-01-17 | Outpatient (CLI) | payer OTHER | LOC: HYPER 06:12 | DX: L59.8 Other specified disorders of the skin and subcutaneous tissue related to radiation (principal); C61 Malignant neoplasm of prostate; E78.5 Hyperlipidemia, unspecified; I71.4 Abdominal aortic aneurysm, without rupture; I10 Essential (primary) hypertension; I25.10 Atherosclerotic heart disease of native coronary artery without angina pectoris; J44.9 Chronic obstructive pulmonary disease, unspecified; M19.90 Unspecified osteoarthritis, unspecified site; M87.38 Other secondary osteonecrosis, other site; N30.41 Irradiation cystitis with hematuria; F17.290 Nicotine dependence, other tobacco product, uncomplicated; Y84.2 Radiological procedure and radiotherapy as the cause of abnormal reaction of the patient, or of later complication, without mention of misadventure at the time of the procedure ==

== ENCOUNTER 2021-09-17 12:35 | Inpatient (IN) | payer OTHER ==
[~2021-09-17] VITALS: Ht 175.3 cm; Wt 51.6 kg
[2021-09-17 12:37] VITALS: BP 126/90
[2021-09-17 13:08] LABS: BASOPHILS 0.3 % (0.0-2.0); EOSINOPHILS 0.1 % (0.0-3.0); HEMATOCRIT 44.3 % (42.0-52.0); HEMOGLOBIN 14.1 gm/dL (14.0-18.0); LYMPHOCYTES 4.8 % (24.0-44.0); MCH 26.6 pg (26.0-34.0); MCHC 31.9 g/dL (28.0-37.0); MCV 83.3 fL (80.0-100.0); MONOCYTES 6.6 % (1.0-8.0); PLATELET COUNT 272 thou/uL (150-400); POLYS 88.2 % (36.0-66.0); RBC 5.32 mil/uL (4.50-6.00); RDW 20.3 % (10.5-14.5); WBC 7.9 thou/uL (4.0-11.0)
[2021-09-17 13:18] LABS: CALCIUM 9.6 mg/dL (8.5-10.1); CREATININE 0.8 mg/dL (0.7-1.3)
[2021-09-17 13:19] LABS: POTASSIUM 4.3 mmol/L (3.5-5.1)
[2021-09-17 13:27] LABS: TOTAL BILIRUBIN 1.5 mg/dL (0.2-1.0); TOTAL PROTEIN 7.5 g/dL (6.4-8.2)
[2021-09-17] MEDS ORDERED: OXYBUTYNIN CHLO15 MG PO (13:58)
[2021-09-17] MEDS ORDERED: LORAZEPAM 0.50.5 MG PO (14:02)
[2021-09-17] MEDS ORDERED: ZOLOFT50 M1 PO (14:03)
[2021-09-17] MEDS ORDERED: RAYOS5 MG PO (14:04)
[2021-09-17] MEDS ORDERED: INDAPAMIDE2.5 MG PO (14:04)
[2021-09-17 14:20] LABS: ANISOCYTOSIS 2+
--- NOTE | 2021-09-17 14:46 | NUR ---
PT FAMILY UPDATED IN WAITING ROOM ON PT STATUS. FAMILY REQUESTING TO SPEAK WITH ED PHYSICIAN. EDP NOTIFIED.
--- NOTE | 2021-09-17 15:11 | NUR ---
LAB CALLED REGARDING BLOOD CULTURE DRAW. 4x ATTEMPT FOR SECOND SET OF CULTURES FAILED, LAB AND EDP NOTIFIED. LAB TO COME AND REDRAW CULTURES AND LACTIC.
[2021-09-17 17:20] VITALS: BP 125/85
[2021-09-17 21:00] VITALS: BP 125/88
[2021-09-18 04:24] VITALS: BP 118/81
[2021-09-18 05:00] LABS: CALCIUM 8.4 mg/dL (8.5-10.1); CREATININE 0.5 mg/dL (0.7-1.3); POTASSIUM 3.8 mmol/L (3.5-5.1)
[2021-09-18 05:06] LABS: ALBUMIN 2.4 g/dL (3.4-5.0); MAGNESIUM 1.7 mg/dL (1.8-2.4); TOTAL BILIRUBIN 0.7 mg/dL (0.2-1.0); TOTAL PROTEIN 5.5 g/dL (6.4-8.2)
[2021-09-18 05:08] LABS: ABSOLUTE NEUTROPHILS 5.6 thou/uL (1.4-8.2); BASOPHILS 0.1 % (0.0-2.0); HEMATOCRIT 34.3 % (42.0-52.0); MCH 26.7 pg (26.0-34.0); MCHC 32.5 g/dL (28.0-37.0); MCV 82.1 fL (80.0-100.0); MONOCYTES 2.5 % (1.0-8.0); PLATELET COUNT 225 thou/uL (150-400); POLYS 94.4 % (36.0-66.0); RBC 4.18 mil/uL (4.50-6.00); RDW 19.1 % (10.5-14.5)
[2021-09-18 05:26] LABS: HEMOGLOBIN 11.1 gm/dL (14.0-18.0)
--- NOTE | 2021-09-18 07:26 | NUR ---
ASSUME CARE 1900. PT/VITALS STABLE. DEEIS ANY PAIN. A/O X 4. VERY POOR TOLERANCE TO ACTIVITY. PT GETS VRY SOB/WINDED WITH MILD EXERTION. APPEAR EMACIATED. POOR APPETITIE INDICATED. ASSESSMENT CHARTED. POOR PROGRESS TO POC. ST/SR ON MONITOR. PLAN IS TO CONTINUE TO MONITOR AND MANAGE RESP FUNCTION, ENCOURAGE NUTRITIONAL AND FLUID INTAKE. WILL CONTINUE TO MONITOR AND FOLLOW WITH POC
--- NOTE | 2021-09-18 08:39 | EKG ---
[place] [address] [facility] [place] [address] ELECTROCARDIOGRAM REPORT Name: SKIP KRAUS Room #: 455-P ADM IN M.R.#: [id number] Admission: 09/17/21 Attend Phys: Con Marcial MD Discharge: Date of : 50 Report #: [id number] [facility] ED Test Date: 2021-09-17 Test Time: 14:20:42 Pat Name: SKIP KRAUS Department: Room: [facility] Gender: M Steel Tier: tjones : 1950 Requested By: Capri Young Order Number: [id number] MD: Renny Menjivar Measurements Intervals [place] Rate: 99 P: 79 [place]: 141 QRS: -116 QRSD: 140 T: 51 QT: 390 QTc: 501 Interpretive Statements Sinus rhythm Consider right atrial enlargement RBBB and LAFB No previous ECG available for comparison Electronically Signed On 09-18-2021 8:39:02 AIR CARRIER MAINTENANCE INSPECTOR by Renny Menjivar [email or web address] <ELECTRONICALLY SIGNED> By: Renny Menjivar MD, [facility] 09/18/21 0839 1420 1420 Renny Menjivar MD, FACC /EPI
[2021-09-18 09:58] VITALS: BP 113/84
[2021-09-18 15:58] VITALS: BP 108/68
[2021-09-18 20:10] VITALS: BP 153/86
[2021-09-19] VITALS (7 sets, daily range): BP systolic 101–148; BP diastolic 67–89
--- NOTE | 2021-09-19 04:31 | NUR ---
PT IS A/O X3 WITH FORGETFULNESS. IS UP WITH ASSISTANCE X1/SBA TO THE BSC OR CHAIR. SOA WITH EXERTION. CAN BE IMPULSIVE WITH TAKING OFF OXYGEN AND HEART MONITOR. EASILY REDIRECTED. MEDICATIONS GIVEN PER MAR. FALL PRECAUTIONS IN PLACE, CALL LIGHT IS WITHIN REACH.
--- NOTE | 2021-09-19 10:27 | NUR ---
PT ON TELE HR IN 120'S. DR. ROJAS AWARE, EKG ORDERED STAT.
--- NOTE | 2021-09-19 11:05 | EKG ---
[place] [address] [facility] [place] [address] ELECTROCARDIOGRAM REPORT Name: SKIP KRAUS Room #: 455-P ADM IN M.R.#: [id number] Admission: 09/17/21 Attend Phys: Con Marcial MD Discharge: Date of : 50 Report #: [id number] [facility] Test Date: 2021-09-19 Test Time: 10:39:03 Pat Name: SKIP KRAUS Department: Room: 455 P Gender: M Hand Cloth Folder: CHARLEY : 1950 Requested By: Con Marcial Order Number: [id number] MD: Renny Menjivar Measurements Intervals [place] Rate: 131 P: 87 [place]: 120 QRS: 82 QRSD: 135 T: -78 QT: 350 QTc: 517 Interpretive Statements Sinus tachycardia Right bundle branch block Compared to ECG 09/17/2021 14:20:42 Sinus rhythm no longer present Left anterior fascicular block no longer present Electronically Signed On 09-19-2021 11:05:04 PACKAGE LIFT OPERATOR by Renny Menjivar [email or web address] <ELECTRONICALLY SIGNED> By: Renny Menjivar MD, [facility] 09/19/21 1105 1039 1039 Renny Menjivar MD, FACC /EPI
--- NOTE | 2021-09-19 14:38 | NUR ---
NO STEPS HE USES INSIDE. PT INDICATED HE HAD BEEN INDEPENDENT WITH GAIT AND ADLS IN THE HOME SETTING. PT INDICATED HE HAS A 4WW AND A SCOOTER FOR COMMUNITY USE. PT INDICATED HE HAD NO HH HX. PT INDICATED HE PLANS TO RETURN HOME ONCE MEDICALLY STABLE. CM REQUESTED AND RECEIVED PERMISSION TO SPEAK WITH PT'S DTR CU[place] . SHE CONFIRMED THAT ABOVE. SHE INDICATED THAT SHE, HER DTR AND SPOUSE HAVE WORKED OUT SO THAT SOMEONE IS ALWAYS THERE. DTR INDICATED THAT ASSIST PT WITH MEAL PREP AND LAUNDRY. SHE INDICATED THEY WERE RECEPTIVE TO HH OR O2 IF NEEDED UPON DC. THEY INDICATED NO PREFERANCE FOR PROVIDERS. CM FAXED REFERRAL TO [facility]. DTR IS AWARE AND AGREEABLE. PHYSICIAN INDICATED THAT PT MAY BE MEDICALLY STABLE TO DC OVER WEEKEND. EXERCISE OX TEST WILL NEED TO BE DONE PRIOR TO DC IF PT'S QUALIFIES FOR HOME O2 FAX TESTING RESULTS AND SCRIPT TO [facility] EM[facility]PARTMENT CALL . FAX ORDERS TO [facility] .
--- NOTE | 2021-09-20 05:12 | NUR ---
patient aox3 confused and forgetful. patient is on 3l of oxygen no soa or distress noted this shift.patient requested to sleep on the recliner.patient calm and cooperative with care and meds. patient uses urinal. patient encouraged fluids. fall precaution in place. patient in bed asleep at this time breathing regular and unlaboured.
[2021-09-20 05:43] LABS: ABSOLUTE NEUTROPHILS 3.7 thou/uL (1.4-8.2); BASOPHILS 0.4 % (0.0-2.0); EOSINOPHILS 0.6 % (0.0-3.0); HEMATOCRIT 37.5 % (42.0-52.0); LYMPHOCYTES 10.6 % (24.0-44.0); MCH 26.5 pg (26.0-34.0); MCHC 32.1 g/dL (28.0-37.0); MCV 82.5 fL (80.0-100.0); MONOCYTES 10.4 % (1.0-8.0); PLATELET COUNT 255 thou/uL (150-400); RBC 4.55 mil/uL (4.50-6.00); RDW 19.3 % (10.5-14.5); WBC 4.7 thou/uL (4.0-11.0)
[2021-09-20 05:58] LABS: ALBUMIN 2.7 g/dL (3.4-5.0); CALCIUM 8.5 mg/dL (8.5-10.1); CREATININE 0.6 mg/dL (0.7-1.3); TOTAL BILIRUBIN 0.5 mg/dL (0.2-1.0); TOTAL PROTEIN 6.2 g/dL (6.4-8.2)
[2021-09-20 06:01] LABS: DIRECT BILIRUBIN 0.3 mg/dL (<0.1-0.2); PHOSPHORUS 2.2 mg/dL (2.6-4.7)
[2021-09-20 06:18] LABS: POTASSIUM 2.9 mmol/L (3.5-5.1)
[2021-09-20 07:18] VITALS: BP 116/86
[2021-09-20 15:23] VITALS: BP 108/72
[2021-09-20 20:15] VITALS: BP 116/80
--- NOTE | 2021-09-20 22:37 | HC ---
[facility] [place] [address] CONSULTATION Name: SKIP KRAUS Room #: 455-P ADM IN M.R.#: [id number] Admission: 09/17/21 Attend Phys: Con Marcial MD Discharge: Date of : 50 Report #: [id number] THIS REPORT FOR: cc: Charly Barnett MD, Thomas P. MD Geha,Fran Collazo MD ~ DATE OF SERVICE: 09/19/2021 INFECTIOUS DISEASE CONSULTATION REASON FOR CONSULTATION: I was asked to evaluate concerning COVID-19 pneumonia. HISTORY OF PRESENT ILLNESS: The patient is a 71-year-old with underlying history of prostate cancer, status post treatment several years ago with no evidence of disease and hypertension, who has been COVID vaccinated x3, presents with 3-day history of myalgias, arthralgias, nonproductive cough and progressive shortness of breath. Evaluation noticed pulmonary embolus on CT scan. He is now on 4-6 liters of oxygen per nasal cannula. He has had no chest pain or palpitations. No nausea, vomiting or diarrhea. No previous history of pneumonia, tuberculosis, HIV, hepatitis. He has had pneumonia x1 in the distant past. He has also noticed a fair amount of weight loss over the last several months. He does come in on prednisone 10 mg a day. REVIEW OF SYSTEMS: A 14-point review of system was negative other than what has been described above. ALLERGIES: None known. MEDICATIONS: As noted on his MAR. PAST MEDICAL HISTORY: Prostate cancer, hypertension, depression, BPH, COPD. FAMILY HISTORY: Negative for tuberculosis. SOCIAL HISTORY: Past smoker, no significant alcohol intake. Lives with his extended family. PHYSICAL EXAMINATION: GENERAL: He is afebrile and hemodynamically stable. He was cachectic. SKIN: Without rash. HEENT: No palpable adenopathy. Eyes without scleral icterus. Mouth without mucositis. NECK: Supple. LUNGS: A few scattered crackles posteriorly. HEART: Regular, without murmur, gallop or rub. ABDOMEN: Soft and nontender with no hepatosplenomegaly or masses appreciated. [facility] [address] [facility] [place] [address] CONSULTATION Name: SKIP KRAUS Room #: 455-P ADM IN M.R.#: [id number] Admission: 09/17/21 Attend Phys: Con Marcial MD Discharge: Date of : 50 Report #: [id number] EXTREMITIES: Without clubbing, cyanosis or edema. NEUROLOGIC: Cranial nerves intact. Strength in upper and lower extremities was symmetric. PSYCHIATRIC: Mood without anxiety. SPINE: Nontender. LABORATORY DATA: Reviewed. Microbiology reviewed. Ultrasound of lower extremities, CT scan of the chest reviewed. IMPRESSION: A 71-year-old with underlying chronic obstructive pulmonary disease, past smoker, presents with COVID-19 infection and pulmonary embolus. No ground glass infiltrates seen on CT scan. He was previously vaccinated, past history of prostate cancer and hypertension. RECOMMENDATIONS: Recommend a 3-day course of remdesivir. If able could use enteral therapy with Paxlovid although unclear if there is enough dosing available for patient to get access. Other option would be monoclonal antibody to coronavirus spike protein, Sotrovimab. Last check, there was minimal supply, several days of a waiting list, therefore, would recommend a 3-day course of remdesivir. Continue with corticosteroids as the patient is hypoxic. This may be a combination of COPD exacerbation in addition to the COVID and pulmonary embolus. Treat his pulmonary embolus with anticoagulation. Follow up the patient on COVID isolation unit and reassess over the next 48 hours. <ELECTRONICALLY SIGNED> By: Fran Nunez MD 09/20/21 2237 1754 0115 Fran Nunez MD /nt
--- NOTE | 2021-09-21 03:12 | NUR ---
patient aox3 confused and forgetful. patient impulsive this shift.patient on 4l of oxygen. patient soa with activities. daughter upset because she want the patient to be discharged in the am and thinks otherwise. fall precaution in place. patient in bed asleep at this time breathing regular and unlaboured.
[2021-09-21 04:45] VITALS: BP 144/66
[2021-09-21 05:50] LABS: HEMATOCRIT 36.6 % (42.0-52.0); MCH 27.2 pg (26.0-34.0); MCHC 32.9 g/dL (28.0-37.0); MCV 82.5 fL (80.0-100.0); RBC 4.43 mil/uL (4.50-6.00); RDW 19.1 % (10.5-14.5); WBC 3.7 thou/uL (4.0-11.0)
[2021-09-21 06:16] LABS: ALBUMIN 2.9 g/dL (3.4-5.0); CALCIUM 8.7 mg/dL (8.5-10.1); CREATININE 0.5 mg/dL (0.7-1.3); DIRECT BILIRUBIN 0.3 mg/dL (<0.1-0.2); PHOSPHORUS 2.5 mg/dL (2.5-4.9); TOTAL BILIRUBIN 0.6 mg/dL (0.2-1.0); TOTAL PROTEIN 5.9 g/dL (6.4-8.2)
[2021-09-21 06:25] LABS: POTASSIUM 4.4 mmol/L (3.5-5.1)
[2021-09-21 07:48] VITALS: BP 121/81
[2021-09-21 11:22] VITALS: BP 118/88
[2021-09-21 15:36] VITALS: BP 111/79
[2021-09-21 19:22] VITALS: BP 111/71
[2021-09-22 04:03] VITALS: BP 124/88
--- NOTE | 2021-09-22 04:52 | NUR ---
patient aox2/3 confused and forgetful. patient on 4 l of oxygen no soa or distress noted this shift. patient ambulates to the bathroom slowly with steady gaits. patient has a boss cath care done. patient gets soa with activities fall precaution in place. patient in bed asleep at this time breathing regular and unlaboud.
[2021-09-22 06:06] LABS: HIV ANTIBODY Non Reactive (Non Reactive)
[2021-09-22 07:19] VITALS: BP 111/80
[2021-09-22 07:33] LABS: ALBUMIN 2.8 g/dL (3.4-5.0); CALCIUM 8.7 mg/dL (8.5-10.1); CREATININE 0.6 mg/dL (0.7-1.3); DIRECT BILIRUBIN 0.2 mg/dL (<0.1-0.2); PHOSPHORUS 3.1 mg/dL (2.5-4.9); POTASSIUM 3.5 mmol/L (3.5-5.1); TOTAL BILIRUBIN 0.6 mg/dL (0.2-1.0)
[2021-09-22 10:38] VITALS: BP 108/72
[2021-09-22 11:18] VITALS: BP 108/72
[2021-09-22 11:34] VITALS: BP 101/69
[2021-09-22] MEDS ORDERED: OXYGEN MISCELL (14:03)
[2021-09-22] MEDS ORDERED: VENTOLIN HFA 1818 GM INH (14:14)
[2021-09-22] MEDS ORDERED: FLOMAX0.4 MG PO (14:14)
[2021-09-22] MEDS ORDERED: VITAMINC500 PO (14:14)
[2021-09-22] MEDS ORDERED: XARELTO15 MG PO ×2 (14:14→14:18)
[2021-09-22] MEDS ORDERED: PROTONIX 20 MG20 MG PO (14:14)
[2021-09-22] MEDS ORDERED: AZITHROMYCIN 2250 MG PO (14:14)
[2021-09-22] MEDS ORDERED: ZINC SULFATE50 MG PO (14:14)
[2021-09-22] MEDS ORDERED: PREDNISONE 10 M10 M1 PO (14:14)
[2021-09-22] MEDS ORDERED: XARELTO20 MG PO (14:18)
--- NOTE | 2021-09-22 14:52 | NUR ---
CARE TEAM INDICATED THAT PT IS MEDICALLY STABLE TO DC HOME THIS DAY. RT DID PT'S EXERCISE OX TESTING AND IT WAS DETERMINED THAT PT NEEDS 4L CONTINUOUS AT THIS TIME. CM FAXED TESTING, SCRIPT, AND DC ORDERS TO [facility]. CM PROVIDED PT WITH [facility] PORT[facility] T[facility] FOR DC HOME THIS DAY. CM CALLED PT'S DTR AND LEFT VM INDICATING THAT ORDERS WERE ENTERED. AWAITING TIME OF WHEN SHE WILL ARRIVE TO PICK PT UP. PT TO DC WITH [facility] AND IS TO FOLLOW UP WITH UROLOGY. PT AND DTR AWARE TO CONTACT [facility] UPON DC TO ARRANGE DELIVERY OF HOME O2 SET UP. NO OTHER CM INTERVENTION INDICATED. CASE CLOSED.
== END 2021-09-22 16:15 | disposition home health service (06) | DRG 177 ==
LOC: ER 12:35 → 4W 15:16 → EROBS 15:16 → 4W 17:32
PROVIDERS: Emergency Medicine; Internal Medicine Pulmonary Disease; Nurse Practitioner; Specialist; ADMIT Hospitalist; ATTEND Hospitalist
PROC: XW033E5 Introduction of Remdesivir Anti-infective into Peripheral Vein, Percutaneous Approach, New Technology Group 5 (ICD-10-PCS; principal; 2021-09-19)
DX: U07.1 COVID-19 (principal); I26.99 Other pulmonary embolism without acute cor pulmonale; J96.01 Acute respiratory failure with hypoxia; E43 Unspecified severe protein-calorie malnutrition; J96.02 Acute respiratory failure with hypercapnia; J12.82 Pneumonia due to coronavirus disease 2019; J44.1 Chronic obstructive pulmonary disease with (acute) exacerbation; J44.0 Chronic obstructive pulmonary disease with (acute) lower respiratory infection; Z68.1 Body mass index [BMI] 19.9 or less, adult; I10 Essential (primary) hypertension; R62.7 Adult failure to thrive; E86.0 Dehydration; F32.9 Major depressive disorder, single episode, unspecified; N40.0 Benign prostatic hyperplasia without lower urinary tract symptoms; R63.0 Anorexia; R33.9 Retention of urine, unspecified; Z85.46 Personal history of malignant neoplasm of prostate; Z87.891 Personal history of nicotine dependence; Z92.3 Personal history of irradiation
CPT/HCPCS: 10045